=== PATIENT | male | born 1975 | race Caucasian/White ===

== ENCOUNTER 2020-12-11 04:12 | Day surgery (SDC) | payer BC, OTHER ==
[2020-12-09 15:48] VITALS: BMI 26.4
[2020-12-11] MEDS ORDERED: MIDAZOLAM HCL 2 MG/2 ML SINGLE DOSE VIAL ONE ×3 (07:40→07:57)
[2020-12-11] MEDS ORDERED: PROPOFOL 20 ML ONE ×3 (07:57→08:28)
[2020-12-11] MEDS ORDERED: ceFAZolin 2 GRAM PREMIX BAG IVPB ONE (08:38)
[2020-12-11 11:43] VITALS: BP 118/72; PULSE 70; TEMP 97.7
[2020-12-11] MEDS ORDERED: DEXAMETHASONE SOD PHOSPHATE 4 MG/1 ML VIAL ONE (13:12)
[2020-12-11] MEDS ORDERED: KETOROLAC TROMETHAMINE 30 MG/1 ML VIAL ONE (13:12)
[2020-12-11] MEDS ORDERED: ceFAZolin SODIUM 1 GM VIAL ONE (13:12)
== END 2020-12-11 11:55 | disposition home or self-care (01) ==
LOC: JASU-SURG 04:12
PROVIDERS: ATTEND Orthopaedic Surgery
PROC: 0RNJ4ZZ Release Right Shoulder Joint, Percutaneous Endoscopic Approach (ICD-10-PCS; 2020-12-11)
PROC: 0RQJ4ZZ Repair Right Shoulder Joint, Percutaneous Endoscopic Approach (ICD-10-PCS; principal; 2020-12-11 08:00)
DX: M75.41 Impingement syndrome of right shoulder (principal); S43.431A Superior glenoid labrum lesion of right shoulder, initial encounter; X58.XXXA Exposure to other specified factors, initial encounter; Y93.9 Activity, unspecified; Y92.9 Unspecified place or not applicable; Y99.9 Unspecified external cause status
CPT/HCPCS: 94760